=== PATIENT | male | born 1985 | race Caucasian/White ===

== ENCOUNTER → 2017-02-17 | Outpatient (CLI) | payer MEDICAID | LOC: BRMIMAGING 12:08 | PROVIDERS: ATTEND Physician Assistant | DX: M25.552 Pain in left hip (principal); M79.605 Pain in left leg | CPT/HCPCS: 72100-PO; 73502-PO ==

== ENCOUNTER → 2017-02-24 | Outpatient (CLI) | payer MEDICAID | LOC: BRMIMAGING 16:48 | PROVIDERS: ATTEND Physician Assistant | DX: M79.605 Pain in left leg (principal) | CPT/HCPCS: 73551-PO ==